=== PATIENT | female | born 1950 | race Caucasian/White ===

== ENCOUNTER 2020-04-03 18:17 | Outpatient (CLI) | payer MEDICARE, SELFPAY ==
--- NOTE | ~2020-04-03 | MR_ITS ---
EXAMINATION: MR lumbar spine wo con DATE: 04/03/2020 19:05 INDICATION: Lumbago. TECHNIQUE: Magnetic resonance imaging (MRI) of the lumbar spine was performed without intravenous con trast. Sequences included sagittal T2-weighted FSE, sagittal T2-weighted FS FSE, sagittal T1-weighted FSE, and axial T2-weighted FSE. COMPARISON: None FINDINGS: There is 10 degrees levoscoliosis of lumbar spine. There is 6 mm anterolisthesis of L4 on L 5. There is mild chronic anterior wedging of T10-L1 vertebral bodies. There is interbody fusion at T1 1-T12. There is mildly decreased disc height at T12-L1 and L1-L2, moderately decreased disc height at L2-L3, and severely decreased disc height at L3-L4 and L4-L5. There is ligamentum flavum hypertrophy at the disc levels from L2-L3 through L4-L5. The distal spinal cord signal intensity is normal. The conus medullaris is at T12-L1. There is a 1.9 cm cyst in left kidney. The following disc levels are s pecifically discussed: T12-L1: There is a central zone extrusion. There is a right foraminal zone extrusion. There is modera te bilateral facet joint osteoarthritis. There is moderate right neural foraminal stenosis. There is mild central canal stenosis. L1-L2: The disc is mildly bulging. There is moderate right and mild left facet joint osteoarthritis. There is mild right neural foraminal stenosis. There is mild central canal stenosis. L2-L3: The disc is bulging. There is mild bilateral facet joint osteoarthritis. There is moderate steve ateral neural foraminal stenosis. There is mild central canal stenosis. L3-L4: The disc is bulging and has an annular fissure. There is severe bilateral facet joint osteoart hritis. There is moderate bilateral neural foraminal stenosis. There is severe central canal stenosis . L4-L5: The disc is bulging and has an annular fissure. There is severe bilateral facet joint osteoart hritis. There is moderate bilateral neural foraminal stenosis. There is severe central canal stenosis . L5-S1: The disc is bulging. There is severe bilateral facet joint osteoarthritis. There is mild bilat eral neural foraminal stenosis. There is mild central canal stenosis. IMPRESSION: 1. Severe lumbar spondylosis. 2. Lumbar dextroscoliosis. Reviewed, dictated and finalized at location E.
== END 2020-04-03 18:18 | disposition home or self-care (01) ==
PROVIDERS: Visit Provider Nurse Practitioner Family
DX: M54.5 Low back pain (principal); M47.816 Spondylosis without myelopathy or radiculopathy, lumbar region; M41.86 Other forms of scoliosis, lumbar region
CPT/HCPCS: 72148

== ENCOUNTER 2023-02-18 10:16 | Outpatient (CLI) | payer MEDICARE, SELFPAY ==
--- NOTE | ~2023-02-18 | XR_ITS ---
EXAMINATION: XR foot RT standing 2V DATE: 02/18/2023 11:55 INDICATION: Rheumatoid arthritis without rheumatoid factor. TECHNIQUE: 2 views of the right foot with weightbearing were obtained. COMPARISON: None. FINDINGS: Bone alignment is normal. No fracture. There is diffuse osteopenia. There is mild osteoarth ritis of some of the interphalangeal joints and midfoot joints. There are enthesophytes at the crimper assembler ior and plantar aspects of calcaneal tuberosity. There is heterotopic ossification involving distal A chilles tendon. IMPRESSION: 1. Mild polyarticular osteoarthritis. Reviewed, dictated and finalized at location A.
--- NOTE | ~2023-02-18 | XR_ITS ---
EXAMINATION: XR foot LT standing 2V DATE: 02/18/2023 11:55 INDICATION: Rheumatoid arthritis without rheumatoid factor. TECHNIQUE: 2 views of left foot with weightbearing were obtained. COMPARISON: None. FINDINGS: Bone alignment is normal. No acute fracture. There is a fracture deformity of fifth proxima l phalanx with involvement of the proximal and distal articular surfaces. There is diffuse osteopenia . There is mild osteoarthritis of some of the interphalangeal joints and midfoot joints. There are en thesophytes at the posterior and plantar aspects of calcaneal tuberosity. IMPRESSION: 1. Polyarticular osteoarthritis. Reviewed, dictated and finalized at location A.
--- NOTE | ~2023-02-18 | XR_ITS ---
EXAMINATION: XR hand BI arthritis min 3V DATE: 02/18/2023 11:55 INDICATION: Rheumatoid arthritis without rheumatoid factor. TECHNIQUE: 4 views of right hand and 4 views of left hand on a total of 7 radiographs were obtained. COMPARISON: None. FINDINGS: RIGHT HAND: There is scapholunate dissociation with rotatory subluxation of the scaphoid. There is vo lume loss of lunate proximally, which may be secondary to osteonecrosis or osteoarthritis. There is m ild osteoarthritis of radiocarpal joint, triscaphe joint, and first carpometacarpal joint. There is m oderate osteoarthritis of second metacarpophalangeal joint and mild osteoarthritis of third metacarpo phalangeal joint. There is mild osteoarthritis of most of the interphalangeal joints. There are peria rticular calcifications in the wrist and at the metacarpophalangeal joints. LEFT HAND: Bone alignment is normal. No fracture. There is mild osteoarthritis of first carpometacarp al joint, fourth proximal interphalangeal joint, and second distal interphalangeal joint. There is a periarticular calcifications in the wrist and at the metacarpophalangeal joints. IMPRESSION: 1. Polyarticular osteoarthritis. No evidence of rheumatoid arthritis. 2. Right-sided scapholunate dissociation. 3. Proximal volume loss of right lunate, which may be secondary to osteonecrosis or osteoarthritis. Reviewed, dictated and finalized at location A. IMPRESSION: 1. Polyarticular osteoarthritis. No evidence of rheumatoid arthritis. 2. Right-sided scapholunate dissociation. 3. Proximal volume loss of right lunate, which may be secondary to osteonecrosi s or osteoarthritis.
[2023-02-18 11:40] LABS: Hematocrit 40.9 % (37.0-47.0); Mean Corpuscular HGB Conc 31.8 g/dl (32-36); Mean Corpuscular Hemoglobin 29.3 pg (26-34); Mean Corpuscular Volume 92.1 fl (80-100); Mean Platelet Volume 9.8 fl (7.4-10.4); Platelet Count Result 228 k/mm3 (150-375); Red Blood Count 4.44 M/mm3 (4.2-5.4); Red Cell Distribution Width 15.1 % (11.5-14.5); White Blood Count 6.1 K/mm3 (4.5-10.0)
[2023-02-18 11:41] LABS: Appearance Urine Clear (Clear); Bilirubin Urine Negative (Negative); Blood Urine Negative (Negative); Color Urine Yellow (Yellow); Glucose Urine UA 3+ mg/dL (Negative); Ketones Urine Negative (Negative); Leukocyte Esterase Ur Negative LEU/UL (Negative); Nitrate Urine Negative (Negative); Protein Urine Negative (Negative); Specific Grav Ur 1.032 (1.001-1.035); Urobilinogen Urine 0.2 mg/dL (<2.0); pH Urine 5.5 (5.0-9.0)
[2023-02-18 11:49] LABS: Rheumatoid Factor 15.9 IU/ML (<12)
[2023-02-18 11:52] LABS: Alanine Aminotransferase 23 U/L (6-35); Albumin Level 4.4 g/dL (3.5-5.1); Alkaline Phosphatase 61 U/L (38-126); Anion Gap 7 mmol/L (8-16); Aspartate Amino Transferase 27 U/L (14-36); Bilirubin,Total 0.8 mg/dL (0.2-1.3); Blood Urea Nitrogen 25 mg/dL (7-17); CRP 0.5 mg/dL (<1.0); Calcium 8.9 mg/dL (8.4-10.2); Carbon Dioxide 29 mmol/L (22-30); Chloride 102 mmol/L (98-107); Estimated Glomerular Filt Rate > 60; Glucose 124 mg/dL (65-110); Potassium 4.4 mmol/L (3.4-5.0); Sodium 138 mmol/L (137-145); Uric Acid 3.9 mg/dL (2.5-7.5)
[2023-02-18 11:56] LABS: Add Urine Microscopic? NO
[2023-02-18 12:17] LABS: Vitamin D 25 Hydroxy 47.2 ng/mL
[2023-02-18 13:10] LABS: Erythrocyte Sedimentation Rate 17 mm/hr (0-20)
[2023-02-21 11:54] LABS: Anti Cyclic Citrullinated Pept <16 Units (<20)
[2023-02-23 17:24] LABS: SM Antibody <1.0; SM/RNP Antibody <1.0
[2023-02-23 17:32] LABS: SS-A <1.0; SS-B <1.0
== END 2023-02-18 10:17 | disposition home or self-care (01) ==
PROVIDERS: Visit Provider Internal Medicine
DX: Z79.899 Other long term (current) drug therapy (principal); Z71.89 Other specified counseling; R89.9 Unspecified abnormal finding in specimens from other organs, systems and tissues; M47.816 Spondylosis without myelopathy or radiculopathy, lumbar region; M47.812 Spondylosis without myelopathy or radiculopathy, cervical region; M06.09 Rheumatoid arthritis without rheumatoid factor, multiple sites; M19.042 Primary osteoarthritis, left hand; M19.041 Primary osteoarthritis, right hand; M19.072 Primary osteoarthritis, left ankle and foot; M19.071 Primary osteoarthritis, right ankle and foot
CPT/HCPCS: 36415; 73130; 73620; 80053; 81003; 82306; 84550; 85027; 85652; 86038; 86140; 86200; 86225; 86235; 86430